=== PATIENT | male | born 1980 | race Caucasian/White ===

== ENCOUNTER → 2019-02-16 12:31 | Outpatient (CLI) | payer OTHER, SELFPAY ==
--- NOTE | 2019-02-16 | DI.RAD.S_ITS ---
PROCEDURE: FL SHOULDER INJECTION MR/CT RT INDICATIONS: PAIN IN RIGHT SHOULDER TECHNIQUE: The indications, alternatives, benefits, risks, and complications of the procedure were explained to the patient. Written informed consent was obtained and placed in the chart. The shoulder was examined fluoroscopically and a site for needle placement chosen for entry into the glenohumeral joint from an anterior approach. The skin was prepped and draped in a sterile fashion, and 1% lidocaine infiltrated from skin down to joint capsule. A spinal needle was inserted into the glenohumeral joint, and a small amount of iodinated contrast media injected to confirm intra-articular placement of the needle tip. This was followed by approximately 12 mL dilute solution of a gadolinium containing MR contrast agent. The needle was removed and a dressing was applied. The patient was given postprocedural instructions and sent to the MR suite for MR imaging. FINDINGS: A single fluoroscopic spot image demonstrates intra-articular location of injected iodinated contrast. IMPRESSION: Successful fluoroscopically guided administration of dilute Gadolinium solution into the shoulder joint for MR arthrogram. Dictated by: Alexis Ruvalcaba M.D. on 02/16/2019 at 14:15 Approved by: Alexis Ruvalcaba M.D. on 02/16/2019 at 14:21
--- NOTE | 2019-02-16 | DI.MRI.S_ITS ---
PROCEDURE: MR SHOULDER RT W CON INDICATIONS: PAIN IN RIGHT SHOULDER TECHNIQUE: After the administration of 12 mL of dilute intra-articular Gadolinium contrast, oblique coronal T1 and T2 spin echo with fat saturation, oblique sagittal T1 spin echo with and without fat saturation, oblique sagittal T2 fast spin echo with fat saturation, axial T1 spin echo with fat saturation through the shoulder. COMPARISON: None. FINDINGS: Image quality: Excellent. Rotator cuff: The supraspinatus, infraspinatus, and subscapularis tendons appear intact throughout. No rotator cuff muscle atrophy on sagittal images. Bones and bursae: No bone marrow contusions or fractures. Mild acromioclavicular joint osteoarthritic degeneration. The acromion demonstrates conventional anatomy, without an os acromiale. Capsule and soft tissues: There is a large labral tear involving the superior, anterior and posterior labrum. There is a large, multiloculated para-labral cyst measures approximately 0.7 x 1.9 x 2.8 cm. The para-labral cyst encroaches on the spinoglenoid notch. The glenohumeral ligaments appear intact. The long head of the biceps tendon demonstrates normal location and morphology. The rotator interval appears normal, without fibrosis. The coracohumeral ligament is of normal thickness. No intra-articular bodies. IMPRESSION: 1. Large labral tear. 2. Large para-labral cyst which encroaches on the right spinoglenoid notch. 3. Mild acromioclavicular joint osteoarthritis. Dictated by: Paige Serrano MD, PhD on 02/16/2019 at 13:48 Approved by: Paige Serrano MD, PhD on 02/19/2019 at 9:54
== END ==
PROVIDERS: Visit Provider Radiology Diagnostic Radiology
DX: M25.511 Pain in right shoulder (principal); S43.431A Superior glenoid labrum lesion of right shoulder, initial encounter; S43.491A Other sprain of right shoulder joint, initial encounter; M19.011 Primary osteoarthritis, right shoulder
CPT/HCPCS: 23350; 73222; 77002